=== PATIENT | male | born 1945 | race Caucasian/White ===

== ENCOUNTER 2017-04-03 06:23 | Day surgery (SDC) | payer MEDICARE ==
[~2017-04-03] VITALS: Ht 182.9 cm; Wt 98.0 kg
[~2017-04-03 06:23] MED LIST: ALLOPURINOL100 MG OR; DIGOXIN0.25 MG OR; DILAUDID 2MG2 MG/TAB PO; DULOXETINE HCL60 MG PO; ELIQUIS5 MG PO; FOLIC ACID1 M1 PO; LASIX 40 MG TAB40 MG OR; METOPROLOL TART50 MG PO; METOPROLOL100 M1 OR; PRAVASTATIN SOD20 MG PO; PREDNISONE10 MG OR; ROPINIROLE HCL1 MG PO; VITAMIN B PO; VITAMIN D2000 UNI1 PO
[2017-04-03] MEDS ORDERED: PERCOCET 5/325M1 TAB PO (09:13)
[2017-04-03 09:48] VITALS: BP 128/59
== END 2017-04-03 10:13 | disposition home or self-care (01) ==
LOC: ORM 06:23
PROVIDERS: ATTEND Surgery
PROC: 0YU50JZ Supplement Right Inguinal Region with Synthetic Substitute, Open Approach (ICD-10-PCS; principal; 2017-04-03)
DX: K40.90 Unilateral inguinal hernia, without obstruction or gangrene, not specified as recurrent (principal); I11.0 Hypertensive heart disease with heart failure; I50.9 Heart failure, unspecified; E78.00 Pure hypercholesterolemia, unspecified; C90.00 Multiple myeloma not having achieved remission; Z87.891 Personal history of nicotine dependence; Z79.01 Long term (current) use of anticoagulants; Z86.711 Personal history of pulmonary embolism

== ENCOUNTER 2020-05-17 16:56 | Emergency (ER) | payer MEDICARE ==
[~2020-05-17] VITALS: Ht 182.9 cm; Wt 88.6 kg
[~2020-05-17 16:56] MED LIST changes: +PERCOCET 5/325M1 TAB PO
[2020-05-17 18:16] LABS: HEMATOCRIT 32.7 % (39.0-50.0); HEMOGLOBIN 11.2 g/dl (14.0-18.0); IMMATURE GRANULOCYTES 0.3 % (0.0-5.0); MEAN CELL VOLUME 100.9 fL CALC (80.0-100.0); MEAN CORPUSCULAR HGB 34.6 pG CALC (26.0-32.0); MEAN CORPUSCULAR HGB CONC 34.3 g/dL CAL (32.0-36.0); NEUT# 3.56 thou/uL (1.82-7.42); RED BLOOD COUNT 3.24 mill/uL (4.70-6.10); RED CELL DISTRI WIDTH 13.2 % (11.5-15.5)
[2020-05-17 18:25] LABS: ANION GAP 12 (6-22 (CALC)); BUN 15 mg/dL (8-23); BUN/CREATININE RATIO 13 (12-20 (CALC)); CARBON DIOXIDE 20 mmol/l (22-30); CHLORIDE 109 mmol/l (95-108); CREATININE 1.2 mg/dL (0.7-1.3); GFR 59 ML/MIN (>=60 (CALC)); GFR FOR AFR.AMER. > 60 ML/MIN (>=60 (CALC)); POTASSIUM 3.8 mmol/l (3.5-5.1); SODIUM 137 mmol/l (137-146)
[2020-05-17] MEDS ORDERED: CLEOCIN300 MG PO (20:01)
[2020-05-17] MEDS ORDERED: BACTRIM DS1 TAB PO (20:01)
[2020-05-17 21:07] VITALS: BP 165/67
== END 2020-05-17 21:25 | disposition home or self-care (01) ==
LOC: ED 16:56
PROVIDERS: Family Medicine
DX: L03.116 Cellulitis of left lower limb (principal); L03.115 Cellulitis of right lower limb; L97.429 Non-pressure chronic ulcer of left heel and midfoot with unspecified severity; L97.419 Non-pressure chronic ulcer of right heel and midfoot with unspecified severity; M79.89 Other specified soft tissue disorders
CPT/HCPCS: J0878